=== PATIENT | male | born 1980 | race Caucasian/White ===

== ENCOUNTER 2024-01-27 10:23 | Emergency (ER) | payer BC, SELFPAY ==
[2024-01-27 10:25] VITALS: BP 119/77
--- NOTE | 2024-01-27 11:22 | ED.GENMED ---
History of Present Illness
General
Chief Complaint: Skin Surface Trauma
Source: patient
Time Seen by Provider: 01/27/24 10:33
History of Present Illness
History of Present Illness:
43-year-old male with no significant past medical history presenting emergency department for evaluation after cutting his left thigh/knee on a chainsaw while cutting firewood earlier this morning. No other injuries were sustained. Patient unsure
of last tetanus.
Past History
Past History
ED Past Medical History: None
ED Past Surgical History: None
Social History
Tobacco: Non-smoker
Alcohol: Occasional
Drug: None
Personal: Single
Living: with family
Employment: Employed
Review of Systems
Review of Systems
All Other Systems: ROS reviewed and negative except as documented in HPI and ROS
Phy Exam
Physical Exam
Physical Exam:
GENERAL: Alert , in no apparent distress
EYE: conjunctiva clear
Head: Normocephalic atraumatic
NECK: Supple,
ENT: mmm.
LUNGS: no acute respiratory distress
NEUROLOGICAL: Alert and oriented
SKIN: Warm and dry, 4-1/2 cm jagged horizontally oriented partial-thickness laceration just proximal to the patella of the left knee. No active bleeding
MUSCULOSKELETAL: well perfused.
PSYCH: Normal and appropriate interaction.
Scores
Heart Failure Risk
Heart Failure Risk Score: Not Applicable
Heart Score for Chest Pain Patients
STEMI patient?: Not applicable
Withdrawal Assessment of Alcohol
Withdrawal Assessment Completed?: Not applicable
Course
Orders/Labs/Results
Orders:
Orders
01/27/24 11:22
Knee Immobilizer Left-Treatmen ONCE
Tetanus/Diphth/Acelpertussis [Adacel] 0.5 ml IM .ONCE ONE
Vital Signs
Initial and Last Documented VS:
Initial Vital Signs
Temp Pulse Resp BP Pulse Ox
98.0 F 55 16 119/77 98
01/27/24 10:25 01/27/24 10:25 01/27/24 10:25 01/27/24 10:01/27/24 10:25
Last Documented Vital Signs
Temp Pulse Resp BP Pulse Ox
98.0 F 55 16 119/77 98
01/27/24 10:25 01/27/24 10:25 01/27/24 10:01/27/24 10:01/27/24 10:25
Procedures
Laceration Closure
Left Knee:
Status of Wound: dirty
Size of Wound in cm: 4.5
Description of Wound Edges: ragged
Preparation: cleaned with saline
Anesthesia: 1% Lidocaine with epi
Revision/Debridement: minor revision
Wound exploration: all visible FB removed
Type of Closure: layered closure
Skin Closure Material: 4-0 nylon (15) and 4-0 vicryl (7)
Number of sutures: 22
MDM/Problems Addressed
MDM/Problems Addressed:
43-year-old male presenting emergency department for evaluation after sustaining laceration to the left proximal knee with a chainsaw. Laceration repaired as above. Attempted to remove is much debris as possible. Will cover with Keflex. Suture
removal 10 to 12 days. Due to the location of the wound decision was made to place patient in knee immobilizer to help with wound healing. Aware of return precautions to the ER.
*Pulse Oximetry
Patient hypoxic: no
*Critical Care Note
Total Time (30-74mins, 75-104mins- exclusive of procedures): Not Applicable
ED Attending Note
-
Portions of this chart may have been created with voice recognition software.� Occasional wrong word or��sound alike� substitutions may have occurred due to the inherent limitations of voice recognition software.
Discharge Plan
Departure
Patient Disposition: Home (Routine Discharge)
Date of Disposition: 01/27/24
Time of Disposition: 11:22
Patient with high blood pressure during this ER visit?: No
Discharge Problem:
Laceration of left knee
Instructions: Laceration Repair With Stitches (DC)
Prescriptions:
New
cephalexin 500 mg tablet
500 mg PO BID 5 Days Qty: 10 0RF
Referrals:
UNKNOWN - PT DOES,NOT KNOW [Family Provider] -
Activity Restrictions/Additional Instructions:
Suture removal in 10-12 days
Interventions
Interventions:
ED- Fall Risk Assessment Last Done: 01/27/24 10:42
*Nursing Disposition Last Done: 01/27/24 11:45
ED-Skin Assessment Last Done: 01/27/24 10:42
Discharge Date and Time
Discharge Date/Time: 01/27/24 11:45
Print Language: ITALIAN
[2024-01-27] MEDS: ADACEL 0.5 ML IM (11:36)
== END 2024-01-27 11:45 | disposition home or self-care (01) ==
LOC: EMR 10:23
PROVIDERS: EMERGENCY PHYSICIAN Emergency Medicine
DX: S81.012A Laceration without foreign body, left knee, initial encounter (principal); W29.3XXA Contact with powered garden and outdoor hand tools and machinery, initial encounter; Z23 Encounter for immunization
CPT/HCPCS: 99284; 12032; 90471; 90715